=== PATIENT | male | born 1980 | race Two or more races ===

== ENCOUNTER 2022-04-26 16:41 | Emergency (ER) | payer MEDICAID ==
[~2022-04-26] VITALS: Ht 170.2 cm; Wt 81.8 kg
[2022-04-26] MEDS ORDERED: HYDROCODONE/ACETAMINOPHEN 5-325 MG TABLET PO ONE (17:15)
[2022-04-26 18:43] VITALS: BP 115/72
== END 2022-04-26 19:37 | disposition home or self-care (01) ==
LOC: EMS 16:42
DX: S93.601A Unspecified sprain of right foot, initial encounter (principal); V49.49XA Driver injured in collision with other motor vehicles in traffic accident, initial encounter; Y93.89 Activity, other specified; Y92.89 Other specified places as the place of occurrence of the external cause; Y99.8 Other external cause status
CPT/HCPCS: 99283